=== PATIENT | female | born 1960 | race American Indian/Alaskan Native ===

== ENCOUNTER 2017-07-30 08:20 | Emergency (ER) | payer OTHER ==
[2017-07-30] MEDS ORDERED: TYLENOL PO ONE (12:38)
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
[2017-07-30 13:37] VITALS: BP 120/98
== END 2017-07-30 13:42 | disposition home or self-care (01) ==
LOC: ED 08:20
DX: M54.2 Cervicalgia (principal); R51 Headache; M79.1 Myalgia; I10 Essential (primary) hypertension; E11.9 Type 2 diabetes mellitus without complications; V89.2XXA Person injured in unspecified motor-vehicle accident, traffic, initial encounter; Y93.89 Activity, other specified; Y92.89 Other specified places as the place of occurrence of the external cause; Y99.8 Other external cause status
CPT/HCPCS: 70450; 72125